=== PATIENT | female | born 1960 | race Caucasian/White ===

== ENCOUNTER → 2017-01-26 | Outpatient (CLI) | payer BC ==
[~2017-01-26] MED LIST: ARIMIDEX1 MG PO; EFFEXOR 3737.5 MG/TA PO; EFFEXOR 75M75 MG/TAB PO; IMITREX100 MG PO; LAMISIL250 M1 PO; LIPITOR20 MG PO; NEURONTIN300 MG/CAP PO; NORCO 325 MG-7.1 TAB PO; PROTONIX40 MG/Pack PO; SMZ/TMPDS PO; TOPAMAX50 MG PO; TRIGLIDE160 M1 PO; ULTRAM 50MG TAB50 MG PO; VITAMINC1000TA PO; VOLTAREN 50MG T50 MG PO; ZOFRAN8 MG PO
== END ==
LOC: MC.RAD 12:53
DX: I10 Essential (primary) hypertension (principal); Z85.3 Personal history of malignant neoplasm of breast; Z92.3 Personal history of irradiation

== ENCOUNTER 2017-02-18 19:23 | Emergency (ER) | payer BC ==
[~2017-02-18] VITALS: Ht 167.6 cm; Wt 70.9 kg
[~2017-02-18 19:23] MED LIST changes: -ARIMIDEX1 MG PO; -EFFEXOR 75M75 MG/TAB PO; -LAMISIL250 M1 PO; -LIPITOR20 MG PO; -PROTONIX40 MG/Pack PO; -SMZ/TMPDS PO; -VOLTAREN 50MG T50 MG PO
[2017-02-18 19:26] VITALS: TEMP 97.8
[2017-02-18 19:48] LABS: BASO % 0.5 % (0.0-2.0); EOS # 0.1 (0.0-0.7); GRAN % 61.9 % (42.2-75.2); HEMATOCRIT 41.3 % (37.0-47.0); HEMOGLOBIN 14.1 g/dl (12.5-16.0); LYMPH # 1.8 (1.2-3.4); LYMPH % 28.2 % (20.0-51.0); MEAN CELL VOLUME 90 fl (80.0-100.0); MEAN CORPUSCULAR HEMOGLOBIN 31 pg (27.0-31.0); MEAN CORPUSCULAR HGB CONC 34 g/dl (33.0-37.0); MEAN PLATELET VOLUME 8.8 fl (7.4-10.4); MONO # 0.5 (0.1-0.6); MONO % 7.2 % (1.7-9.3); PLATELET COUNT 195 K/mm3 (130-400); RED BLOOD COUNT 4.58 M/mm3 (4.10-5.30); REDCELL DISTRIBUTION WIDTH-CV 12.8 % (11.5-14.5); WHITE BLOOD COUNT 6.5 K/mm3 (4.8-10.8)
[2017-02-18 19:54] LABS: INR 0.9 (0.8-3.0); PROTHROMBIN TIME 9.9 SECONDS (9.7-12.8)
[2017-02-18 20:02] LABS: ADJUSTED CALCIUM 8.8 mg/dL (8.4-10.2); ALANINE AMINOTRANSFERASE 22 U/L (9-52); ALBUMIN 4.4 gm/dL (3.5-5.0); ALKALINE PHOSPHATASE 76 U/L (50-136); ANION GAP 14 mmol/L (7-16); BILIRUBIN,TOTAL 0.5 mg/dL (0.0-1.0); BLOOD UREA NITROGEN 14 mg/dL (7-17); CALCIUM 9.1 mg/dL (8.4-10.2); CARBON DIOXIDE 23 mmol/L (22-30); CHLORIDE 104 mmol/L (98-107); CREATININE, serum 0.71 mg/dL (0.52-1.25); GLUCOSE 92 mg/dL (74-106); POTASSIUM 3.9 mmol/L (3.4-5.0); SODIUM 141 mmol/L (137-145); TOTAL PROTEIN 7.4 gm/dL (6.4-8.2)
[2017-02-18] MEDS ORDERED: LIPITOR20 MG PO (20:04)
[2017-02-18] MEDS ORDERED: ARIMIDEX1 MG PO (20:05)
[2017-02-18] MEDS ORDERED: EFFEXOR 75M75 MG/TAB PO (20:05)
[2017-02-18] MEDS ORDERED: LAMISIL250 M1 PO (20:06)
[2017-02-18 20:12] LABS: C-REACTIVE PROTEIN < 0.5 mg/dL (0.0-0.9); TROPONIN-I < 0.012 ng/mL (0.000-0.034)
[2017-02-18 21:15] VITALS: BP 113/74; PULSE 79
== END 2017-02-18 21:16 | disposition home or self-care (01) ==
LOC: COL.ER 19:23
PROVIDERS: Emergency Medicine
DX: R07.89 Other chest pain (principal); E78.5 Hyperlipidemia, unspecified; Z85.3 Personal history of malignant neoplasm of breast; Z82.49 Family history of ischemic heart disease and other diseases of the circulatory system

== ENCOUNTER 2017-04-27 13:01 | Day surgery (SDC) | payer BC ==
[~2017-04-27] VITALS: Ht 167.6 cm; Wt 72.5 kg
[~2017-04-27 13:01] MED LIST changes: +ARIMIDEX1 MG PO; +EFFEXOR 75M75 MG/TAB PO; +LAMISIL250 M1 PO; +LIPITOR20 MG PO
[2017-04-27 13:29] VITALS: BP 113/82; PULSE 70; TEMP 97.9
[2017-04-27] MEDS ORDERED: PROTONIX40 MG/Pack PO (13:36)
[2017-04-27] MEDS ORDERED: VOLTAREN 50MG T50 MG PO (13:40)
[2017-04-27] MEDS ORDERED: SMZ/TMPDS PO (13:41)
[2017-04-27 14:25] VITALS: BP 104/66; PULSE 66; TEMP 98.1
[2017-04-27 14:40] VITALS: BP 94/64; PULSE 64
[2017-04-27 14:50] VITALS: BP 101/71; PULSE 70
[2017-04-27 15:25] VITALS: BP 102/62; PULSE 68
== END 2017-04-27 15:22 | disposition home or self-care (01) ==
LOC: SDCO 13:01
DX: R11.0 Nausea (principal); R63.0 Anorexia; K21.9 Gastro-esophageal reflux disease without esophagitis; Z90.710 Acquired absence of both cervix and uterus; Z90.49 Acquired absence of other specified parts of digestive tract; Z85.3 Personal history of malignant neoplasm of breast; Z90.12 Acquired absence of left breast and nipple; Z82.49 Family history of ischemic heart disease and other diseases of the circulatory system
CPT/HCPCS: OP; J2250; J3010; J7030

== ENCOUNTER → 2017-06-14 | Outpatient (CLI) | payer BC ==
[~2017-06-14] MED LIST changes: +PROTONIX40 MG/Pack PO; +SMZ/TMPDS PO; +VOLTAREN 50MG T50 MG PO
== END ==
LOC: MC.RAD 05-31 13:00
DX: N64.4 Mastodynia (principal); Z85.3 Personal history of malignant neoplasm of breast; Z98.890 Other specified postprocedural states; I10 Essential (primary) hypertension